=== PATIENT | female | born 1955 | race Caucasian/White ===

== ENCOUNTER → 2022-09-20 08:16 | Outpatient (BNVA) | payer MEDICARE, SELFPAY | PROVIDERS: PCP Family Medicine; Visit Provider Family Medicine | DX: E78.5 Hyperlipidemia, unspecified (principal); I10 Essential (primary) hypertension | CPT/HCPCS: 80053; 80061 ==

== ENCOUNTER 2022-10-18 07:34 | Outpatient (CLI) | payer MEDICARE, SELFPAY ==
--- NOTE | 2022-10-18 07:50 | MM_ITS ---
WS: [email or web address] BILATERAL SCREENING DIGITAL TOMOSYNTHESIS MAMMOGRAM WITH CAD HISTORY: screening COMPARISON: None available. Bilateral CC and MLO views with tomosynthesis and synthetic mammography submitted. Computer aided det ection analyzed. Breast composition: The breasts are heterogeneously dense, which may obscure small masses. No suspici ous masses, microcalcifications or architectural distortion. Bilateral coarse calcifications. MM/[place] [id number] IMPRESSION: BI-RADS: 2-Benign FOLLOW UP: 1 Year Follow-up
== END 2022-10-18 07:35 | disposition home or self-care (01) ==
LOC: RAD 07:39
PROVIDERS: PCP Family Medicine; Visit Provider Family Medicine
DX: Z12.31 Encounter for screening mammogram for malignant neoplasm of breast (principal)
CPT/HCPCS: 77063; 77067

== ENCOUNTER 2023-05-13 08:16 | Outpatient (CLI) | payer MEDICARE, SELFPAY ==
--- NOTE | 2023-05-13 08:45 | MR_ITS ---
WS: [id number] MRI LUMBAR SPINE NONCONTRAST HISTORY: chronic back pain COMPARISON: None available. TECHNIQUE: Sagittal and axial multisequence imaging is submitted. Advanced degenerative disc space narrowing in the cervical spine. Severe displacement at C4-5, C5-6 a nd C6-7. Mild reversal of the normal cervical lordosis. 5 nonrib-bearing lumbar vertebral bodies are identified. There may only be 11 thoracic vertebral bodi es. Severe disc space and desiccation at L5-S1. No acute fractures or marrow edema. L5 anterolisthesis by 3 mm. Conus terminates normally at L1. T11-12: Mild annular disc bulging with osteophytic ridging and facet arthritis. Mild bilateral forami nal stenosis. L1-L2: Mild disc bulging with a very shallow RIGHT paracentral disc protrusion. No stenosis. L2-L3: Mild annular disc bulging with ligamentum flavum and facet arthritis. Mild bilateral foraminal and subarticular recess narrowing. L3-L4: Mild annular disc bulging with moderate ligamentum flavum and facet arthritis. Mild central, b ilateral subarticular recess and foraminal stenosis. L4-L5: Diffuse annular disc bulging with severe ligamentum flavum and facet arthritis. Severe central and bilateral subarticular recess and mild foraminal stenosis. Fluid in the facet joints. L5-S1: Diffuse annular disc bulging with a RIGHT paracentral disc protrusion. This disc protrusion is slightly contacting the RIGHT S1 nerve root. Mild central with bilateral subarticular recess and mil d foraminal stenosis. Paravertebral soft tissues are negative. MR/MR lumbar spine wo con* [id number] IMPRESSION: 1. 5 lumbar vertebral bodies are identified. There may only be 11th thoracic v ertebral bodies. If surgery is performed in this patient correlation with imagi ng for correct level is warranted. L5-S1 disc space is severely narrowed. 2. Severe central with bilateral subarticular recess and mild foraminal stenos is at L4-5. Advanced facet joint arthritis at L4-5. 3. Very shallow RIGHT paracentral disc protrusion at L1-2. 4. Mild bilateral foraminal subarticular narrowing at L2-3. 5. Mild central, bilateral subarticular recess and foraminal stenosis at L3-4 and L5-S1. 6. Mild bilateral foraminal stenosis at T11-12.
== END 2023-05-13 08:17 | disposition home or self-care (01) ==
PROVIDERS: PCP Family Medicine; Visit Provider Family Medicine
DX: M54.30 Sciatica, unspecified side (principal); M48.061 Spinal stenosis, lumbar region without neurogenic claudication; M51.27 Other intervertebral disc displacement, lumbosacral region; M51.26 Other intervertebral disc displacement, lumbar region
CPT/HCPCS: 72148

== ENCOUNTER → 2023-05-28 10:10 | Outpatient (BNVA) | payer MEDICARE, SELFPAY | PROVIDERS: PCP Family Medicine; Referring Provider Family Medicine; Visit Provider Physician Assistant | DX: M51.36 Other intervertebral disc degeneration, lumbar region; M54.16 Radiculopathy, lumbar region; Z63.4 Disappearance and death of family member | CPT/HCPCS: 72110; 99203 ==

== ENCOUNTER 2023-06-19 07:40 | Outpatient (RCR) | payer MEDICARE, SELFPAY | END 2023-07-06 23:59 | disposition home or self-care (01) | LOC: SPT 07:40 | PROVIDERS: Visit Provider Physician Assistant | DX: M54.50 Low back pain, unspecified (principal) | CPT/HCPCS: 97110; 97161 ==

== ENCOUNTER 2023-07-07 06:00 | Outpatient (RCR) | payer MEDICARE, SELFPAY | END 2023-08-06 23:59 | disposition home or self-care (01) | LOC: SPT 06:00 | PROVIDERS: Visit Provider Physician Assistant | DX: M54.50 Low back pain, unspecified (principal) | CPT/HCPCS: 97110 ==

== ENCOUNTER → 2023-09-20 08:03 | Outpatient (BNVA) | payer MEDICARE, SELFPAY | PROVIDERS: PCP Family Medicine; Visit Provider Family Medicine | DX: I10 Essential (primary) hypertension (principal); E78.5 Hyperlipidemia, unspecified | CPT/HCPCS: 80053; 80061 ==

== ENCOUNTER 2023-10-31 08:14 | Outpatient (CLI) | payer MEDICARE, SELFPAY ==
--- NOTE | 2023-10-31 08:25 | MM_ITS ---
WS: [email or web address] BILATERAL SCREENING DIGITAL TOMOSYNTHESIS MAMMOGRAM WITH CAD HISTORY: screening COMPARISON: 10/18/2022 Bilateral CC and MLO views with tomosynthesis and synthetic mammography submitted. Computer aided det ection analyzed. Breast composition: The breasts are heterogeneously dense, which may obscure small masses. No suspici ous masses, microcalcifications or architectural distortion. Benign calcifications in each breast. No new or suspicious calcifications. No mass. IMPRESSION: MM/[place] [id number] BI-RADS: 2-Benign FOLLOW UP: 1 Year Follow-up
== END 2023-10-31 08:15 | disposition home or self-care (01) ==
LOC: RAD 08:14
PROVIDERS: PCP Family Medicine; Visit Provider Family Medicine
DX: Z12.31 Encounter for screening mammogram for malignant neoplasm of breast (principal); R92.333 Mammographic heterogeneous density, bilateral breasts; R92.1 Mammographic calcification found on diagnostic imaging of breast
CPT/HCPCS: 77063; 77067

== ENCOUNTER → 2024-09-16 07:44 | Outpatient (BNVA) | payer MEDICARE, SELFPAY | PROVIDERS: PCP Family Medicine; Visit Provider Family Medicine | DX: I10 Essential (primary) hypertension (principal); E78.5 Hyperlipidemia, unspecified; R19.7 Diarrhea, unspecified | CPT/HCPCS: 80053; 80061; 85025 ==

== ENCOUNTER 2024-11-02 12:12 | Outpatient (CLI) | payer MEDICARE, SELFPAY ==
--- NOTE | 2024-11-02 12:40 | MM_ITS ---
WS: [email or web address] BILATERAL 3D TOMOSYNTHESIS DIGITAL SCREENING MAMMOGRAPHY WITH CAD CLINICAL INFORMATION: screening HISTORY: Screening mammogram. No current complaints. COMPARISON: 2023 TECHNIQUE: Bilateral CC and MLO views. FINDINGS: The breasts are composed of heterogeneous fibroglandular density tissue, which can limit the detectio n of small underlying mass lesions. No suspicious mass, asymmetry, calcifications, or architectural d istortion. No evidence of malignancy. Stable clustered and coarse calcifications. MM/MM [facility] tomosynthesis [id number] IMPRESSION: DENSITY: The breasts are heterogeneously dense, which may obscure small masses. BI-RADS: 2 - Benign FOLLOW UP: 1 Year Follow-up Recommend return to annual screening mammography.
--- NOTE | 2024-11-02 13:00 | XR_ITS ---
WS: [email or web address] SCREENING DEXA SCAN [facility] CLINICAL INFORMATION: screening COMPARISON: None. FINDINGS: The L1-L4 bone mineral density measures 0.850 g/cm2. This corresponds to a T score score of -2.7 and Z score of -1.1. Left femoral neck bone mineral density measures 0.851 g/cm2. This corresponds to a T score of -1.2 an d Z score of 0.1. Right femoral neck bone mineral density measures 0.882 g/cm2. This corresponds to a T score -1.0of an d Z score of 0.3. Mean femoral neck bone mineral density measures 0.867 g/cm2. This corresponds to a T score of -1.1 an d Z score of 0.2. XR/XR DEXA axial skeleton* [id number] IMPRESSION: Osteoporosis lumbar spine. Osteopenia femoral necks. Patient's FRAX calculated 10 year probability for major osteoporotic fracture i s 9.4% and osteoporotic hip fracture is 1.2%.
== END 2024-11-02 12:13 | disposition home or self-care (01) ==
LOC: RAD 12:17
PROVIDERS: PCP Family Medicine; Visit Provider Family Medicine
DX: Z12.31 Encounter for screening mammogram for malignant neoplasm of breast (principal); Z00.00 Encounter for general adult medical examination without abnormal findings; R92.333 Mammographic heterogeneous density, bilateral breasts; R92.323 Mammographic fibroglandular density, bilateral breasts; R92.1 Mammographic calcification found on diagnostic imaging of breast; M81.8 Other osteoporosis without current pathological fracture; M85.852 Other specified disorders of bone density and structure, left thigh; M85.851 Other specified disorders of bone density and structure, right thigh
CPT/HCPCS: 77063; 77067; 77080

== ENCOUNTER → 2024-11-06 09:38 | Outpatient (BNVA) | payer MEDICARE, SELFPAY | PROVIDERS: PCP Family Medicine; Visit Provider Physician Assistant | DX: M25.532 Pain in left wrist (principal); G56.02 Carpal tunnel syndrome, left upper limb; M65.342 Trigger finger, left ring finger; G56.22 Lesion of ulnar nerve, left upper limb | CPT/HCPCS: 73130; 99203 ==

== ENCOUNTER 2025-04-29 07:38 | Outpatient (RCR) | payer MEDICARE, SELFPAY | END 2025-05-06 23:59 | disposition home or self-care (01) | LOC: SPT 07:38 | PROVIDERS: PCP Family Medicine; Visit Provider Family Medicine | DX: M54.50 Low back pain, unspecified (principal) | CPT/HCPCS: 97110; 97161 ==

== ENCOUNTER 2025-05-07 06:00 | Outpatient (RCR) | payer MEDICARE, SELFPAY | END 2025-06-06 23:59 | disposition home or self-care (01) | LOC: SPT 06:00 | PROVIDERS: PCP Family Medicine; Visit Provider Family Medicine | DX: M54.50 Low back pain, unspecified (principal) | CPT/HCPCS: 97110 ==

== ENCOUNTER 2025-06-07 06:30 | Outpatient (RCR) | payer MEDICARE, SELFPAY | END 2025-07-05 07:50 | disposition home or self-care (01) | LOC: SPT 06:30 | PROVIDERS: PCP Family Medicine; Visit Provider Family Medicine | DX: M54.50 Low back pain, unspecified (principal) | CPT/HCPCS: 97110; 97164 ==